=== PATIENT | male | born 1965 | race Native Hawaiian/Other Pacific Islander ===

== ENCOUNTER 2016-05-22 10:27 | Emergency (ER) | payer OTHER ==
[2016-05-22 10:38] VITALS: RESP 18; TEMP 98
[2016-05-22 10:41] VITALS: BMI 23.1
--- NOTE | 2016-05-22 10:45 | C.PDOC ---
History Of Present Illness 50 y/o male presents to the ED with complains of pain to left flank area. Pt is a heavy equipment diesel mechanic, and [employer], pt was under vehicle loosening a tight bolt when the force of pulling and sudden release made him fly back and hit his left flank area against the transmission of vehicle. Pain is 10/10, sharp and associated with occasional electrical jolts with movement of legs. Pt denies head injury, head pain, neck pain, urinary or bowel incontinence or any other complaints. Time Seen by Provider: 05/22/16 10:39 Chief Complaint (Nursing): Back Pain History Per: Patient History/Exam Limitations: no limitations Onset/Duration Of Symptoms: Mins Current Symptoms Are (Timing): Still Present Quality Of Discomfort: "Pain" Severity: Severe Pain Scale Rating Of: 10 Previous Symptoms: None Associated Symptoms: None Exacerbating Factor(s): Movement Recent travel outside of the [place]: No Past Medical History Reviewed: Historical Data, Nursing Documentation, Vital Signs Vital Signs: Last Vital Signs Temp 98.0 F 05/22/16 10:32 Pulse 58 L 05/22/16 12:11 Resp 18 05/22/16 13:41 BP 108/71 05/22/16 12:11 Pulse Ox 99 05/22/16 13:30 Family History: States: Unknown Family Hx Review Of Systems Except As Marked, All Systems Reviewed And Found Negative. Cardiovascular: Negative for: Chest Pain Respiratory: Negative for: Shortness of Breath Gastrointestinal: Negative for: Abdominal Pain Genitourinary: Negative for: Incontinence Musculoskeletal: Positive for: Back Pain (left flank area). Negative for: Neck Pain Neurological: Negative for: Headache Physical Exam - Physical Exam Appears: Non-toxic, In Acute Distress (moderate pain, difficulty moving) Skin: Warm, Dry, No Rash Head: Atraumatic, Normacephalic Nose: Normal Neck: Normal ROM, No Midline Cervical Tenderness, Supple Chest: Symmetrical Cardiovascular: Rhythm Regular Respiratory: Normal Breath Sounds, No Rales, No Rhonchi, No Wheezing Gastrointestinal/Abdominal: Soft, No Tenderness Back: No Vertebral Tenderness, Paraspinal Tenderness, Straight Leg Raising ((+) left) Extremity: Normal ROM Extremity: Bilateral: Atraumatic Neurological/Psych: Oriented x3, Normal Motor, Normal Sensation ED Course And Treatment O2 Sat by Pulse Oximetry: 99 (on room air) Pulse Ox Interpretation: Normal Medical Decision Making Medical Decision Making: Plan: tramadol, motrin and valium for pain Disposition Counseled Patient/Family Regarding: Studies Performed, Diagnosis, Need For Followup, Rx Given - Disposition Disposition: HOME/ ROUTINE Disposition Time: 13:28 Condition: STABLE Additional Instructions: Follow up with your doctor as needed. Prescriptions: Ibuprofen [Motrin] 600 mg PO TID #20 tab traMADol/Acetaminophen [Ultracet 37.5/325 mg] 1 tab PO TID PRN #20 tab PRN Reason: pain Instructions: Contusion in Adults (DC) Forms: General Discharge Instructions - POA Present On Arrival: None - Clinical Impression Clinical Impression: Low back pain, Contusion - Scribe Statement The provider has reviewed the documentation as recorded by the Myriam Olson Provider Attestation: All medical record entries made by the Myriam were at my direction and personally dictated by me. I have reviewed the chart and agree that the record accurately reflects my personal performance of the history, physical exam, medical decision making, and the department course for this patient. I have also personally directed, reviewed, and agree with the discharge instructions and disposition.
[2016-05-22 12:12] VITALS: BP 108/71; PULSE 58
--- NOTE | 2016-05-22 12:28 | RAD ---
PROCEDURE: Radiographs of the Lumbar Spine. HISTORY: fall COMPARISON: None available. FINDINGS: BONES: Osseous demineralization limits evaluation for acute fracture lines. Alignment appears satisfactory. No listhesis. No acute displaced fracture. Mild degenerative changes. DISC SPACES: Unremarkable. OTHER FINDINGS: None. IMPRESSION: Osseous demineralization. Degenerative changes.
--- NOTE | 2016-05-22 12:55 | RAD ---
HISTORY: fall COMPARISON: No prior. FINDINGS: BONES: Alignment maintained. No fracture. Thoracic spondylosis DISC SPACES: Normal. SOFT TISSUES: Normal. OTHER FINDINGS: None. IMPRESSION: No fracture. Thoracic spondylosis
[2016-05-22 13:30] VITALS: O2SAT 99
== END 2016-05-22 13:41 | disposition home or self-care (01) ==
LOC: C.ER 10:27
DX: S30.0XXA Contusion of lower back and pelvis, initial encounter (principal); W22.8XXA Striking against or struck by other objects, initial encounter; M54.5 Low back pain